=== PATIENT | male | born 1965 | race Caucasian/White ===

== ENCOUNTER → 2017-06-03 | Outpatient (CLI) | payer BC ==
--- NOTE | 2017-06-04 08:35 | XR ---
EXAMINATION TYPE: XR KUB DATE OF EXAM: 06/03/2017 4:56 PM CLINICAL HISTORY: Nephrolithiasis TECHNIQUE: Single supine KUB image of the abdomen is obtained. COMPARISON: 01/03/2016. FINDINGS: Scattered gas is seen in non-distended small bowel loops. Gas and fecal material is seen in non-distended colon. There is no visceromegaly, pneumoperitoneum, or abnormal calcification apprecia nohelia. No renal calculi are appreciated although the renal shadows are partially obscured by bowel. Surinder gical clips are noted within the left medial upper quadrant. The lung bases are clear and the osseous structures are intact. Mild bilateral femoral acetabular arthropathy is noted. IMPRESSION: 1. Nonobstructive bowel gas pattern. 2. No radiopaque renal calculi. Note that no evidence of nephrolithiasis was seen on the CT abdomen p ervin dated 01/13/2016.
== END | disposition home or self-care (01) ==
LOC: RADXRMAIN 15:44
PROVIDERS: ATTEND Urology
DX: N20.0 Calculus of kidney (principal)
CPT/HCPCS: 74018

== ENCOUNTER → 2017-06-17 | Outpatient (CLI) | payer BC ==
--- NOTE | 2017-06-17 16:32 | CT ---
EXAMINATION TYPE: CT urogram wo/w con DATE OF EXAM: 06/17/2017 COMPARISON: 01/03/2016 HISTORY: Gross hematuria x [address] DLP: 1530.30 mGycm, Automated Exposure Control for Dose Reduction was Utilized. CONTRAST: CT scan of the abdomen and pelvis is performed with oral and without and with IV Contrast, patient in jected with 100 mL of Omnipaque 300. 3-D reformats of the collecting systems, ureters and urinary angela dder were created at a separate workstation and submitted for interpretation. FINDINGS: Lack of oral contrast limits evaluation of the hollow viscera. LUNG BASES: Minimal left basilar subsegmental atelectasis. LIVER/GB: There is a fluid attenuated nonenhancing 1.1 cm left hepatic cyst. This is stable from the exam of 2016 retrospectively. There is only limited visualization of the liver given the technique. N o other gross hepatic abnormalities are seen. No radiopaque gallbladder calculi. PANCREAS: No significant abnormality is seen. No ductal dilatation. SPLEEN: The spleen is enlarged and longitudinal dimension measuring 14.7 cm. Craniocaudal dimension c annot be measured as the most cranial portion of the spleen is not included in the [id number]. ADRENALS: No significant abnormality is seen. No thickening or masses. KIDNEYS: On the unenhanced images there is a single punctate 2 mm left lower pole renal calculus that is nonobstructing. No evidence of hydronephrosis bilaterally. There is impression upon the superior pole of the left kidney by the spleen. No focal renal masses are present. No perinephric fat strandin g or perinephric fluid collection. The ureters are nondilated with no filling defects seen. There is mild undulation of the posterior wall of the urinary bladder secondary impression by the enlarged pro state gland BOWEL: Surgical clips are seen at the gastroesophageal junction from prior Annette fundoplication. The re is redemonstration of sigmoid colonic diverticulosis. Sutures are also seen within the rectum. No proximal obstruction. Air-fluid level is seen within the distal esophagus with minimal proximal esoph ageal dilation as noted on the prior exam PROSTATE/SEMINAL VESICLES: The prostate gland is enlarged and heterogenous containing central zone ca lcifications and measuring 5.0 cm in transverse dimension. LYMPH NODES: No greater than 1cm abdominal or pelvic lymph nodes are appreciated. OSSEOUS STRUCTURES: Mild multilevel degenerative changes of the visualized thoracolumbar spine. OTHER: Diastases recti is incidentally noted. Minimal atherosclerosis is seen of the abdominal aorta and its branches. Abdominal aorta is of normal course and caliber. IMPRESSION: 1. Single punctate nonobstructing 2 mm left lower pole renal calculus. 2. Lobulated contour of the posterior urinary bladder wall secondary to impression by the enlarged an d heterogenous prostate gland. No distinct filling defect is seen within the urinary bladder or urete rs. 3. Persistent mild proximal dilatation of the distal esophagus with air-fluid level noted which may r elate to gastroesophageal reflux or stasis. Again endoscopy or upper GI/esophagram could be performed if clinically indicated. 4. Incidentally noted spinal megaly.
== END | disposition home or self-care (01) ==
LOC: RADCTMAIN 15:26
PROVIDERS: ATTEND Urology
DX: N20.0 Calculus of kidney (principal); N40.0 Benign prostatic hyperplasia without lower urinary tract symptoms
CPT/HCPCS: 74178; 74400; Q9967

== ENCOUNTER → 2017-07-22 | Outpatient (CLI) | payer BC ==
--- NOTE | 2017-07-22 23:27 | MR ---
EXAMINATION TYPE: MR shoulder RT wo con DATE OF EXAM: 07/22/2017 COMPARISON: NONE HISTORY: Rt shoulder pain, S/P fall October 2016 TECHNIQUE: Multiplanar, multisequence imaging of the right shoulder is performed without contrast. FINDINGS: The biceps tendon is intact. Subscapularis tendon is intact. There is small shoulder joint effusion. There are small degenerative cysts at the greater tuberosity of the humerus. There is moderate spurri ng at the AC joint. There is only minimal impingement on the supraspinatus tendon. There is no retrac tion. There are are small areas of increased signal in the supraspinatus tendon. The glenoid jennifer ap pear intact. There is no evidence of a fracture. IMPRESSION: Small shoulder joint effusion consistent with synovitis. Small degenerative cysts in the greater tube rosity. Hypertrophic degenerative changes at the AC joint with minimal subacromial impingement. There is mild thickening and increased signal in the supraspinatus tendon consistent with partial tea r and tendinitis.
== END | disposition home or self-care (01) ==
LOC: RADMRIMAIN 21:32
PROVIDERS: ATTEND Orthopaedic Surgery
DX: M25.411 Effusion, right shoulder (principal); M89.311 Hypertrophy of bone, right shoulder; M85.611 Other cyst of bone, right shoulder; M25.811 Other specified joint disorders, right shoulder; M67.813 Other specified disorders of tendon, right shoulder

== ENCOUNTER → 2019-12-08 | Outpatient (CLI) | payer BC ==
--- NOTE | 2019-12-08 17:56 | MR ---
EXAMINATION TYPE: MR lumbar spine wo con DATE OF EXAM: 12/08/2019 COMPARISON: CT urogram June 17, 2017. HISTORY: Pelvic and perineal/perineum pain per order. Back and Bilateral buttocks pain with difficult y sitting per patient. TECHNIQUE: Multiplanar, multisequence imaging of the lumbar spine is performed without IV contrast. FINDINGS: Sagittal images of the lumbar spine show vertebral body heights to remain satisfactory. Per sistent slight grade 1 retrolisthesis L3 on L4, L4 on L5, and L5 on S1. Multilevel disc desiccation w ith moderate to advanced disc space narrowing and vacuum disc phenomenon L5-S1 level. The conus medu llaris is normal in position and signal ending at mid L1 level. Mild to moderate multilevel anterior spurring. Modic type II endplate change and anterior L1-L2 noted Axial images show T12-L1 level to appear within normal limits. Axial images at the L1-L2 level show and broad-based right paracentral disc protrusion with annular t ear effacing anterior thecal sac. Patent bilateral neural foramina. Axial images at L2-L3 are within normal limits. Axial images at L3-L4 level show mild broad disc bulge and spondylolisthesis. Spinal canal is preserv ed. There is mild bilateral anterior inferior neural foraminal narrowing. Axial images at the L4-L5 levels with spondylolisthesis and central disc protrusion effacing anterior thecal sac along with mild facet degenerative changes bilaterally. There is mild bilateral anterior inferior neural foraminal narrowing. Axial images at the L5-S1 level show right Modic type II endplate changes. There is spondylolisthesis with moderate facet degenerative changes bilaterally. There is central disc protrusion and annular t ear. Spinal canal is grossly preserved. There is mild to moderate right inferior neural foraminal chanda rowing encroaching along the inferior right L5 nerve sagittal image 14 and axial image 3 and there is more advanced left-sided neural foraminal narrowing sagittal image 3 effacing the left L5 nerve. Paraspinal muscle bulk is maintained. IMPRESSION: Multilevel spondylolisthesis and degenerative changes in the lumbar spine as detailed abo ve greatest at L5-S1 level.
== END | disposition home or self-care (01) ==
LOC: RADMRIMAIN 16:20
PROVIDERS: ATTEND Family Medicine
DX: M43.16 Spondylolisthesis, lumbar region (principal); M47.816 Spondylosis without myelopathy or radiculopathy, lumbar region; M47.817 Spondylosis without myelopathy or radiculopathy, lumbosacral region
CPT/HCPCS: 72148

== ENCOUNTER → 2022-02-18 | Outpatient (CLI) | payer BC ==
[2022-02-19 00:06] LABS: Basophils # (A) 0.04 X 10*3/uL (0.00-0.10); Basophils % (A) 0.7 %; Eosinophils # (A) 0.22 X 10*3/uL (0.04-0.35); Eosinophils % (A) 3.7 %; HCT 42.6 % (39.6-50.0); HGB 14.2 g/dL (13.0-17.0); Immature Grans, Automated 0.3 %; Lymphocytes # (A) 1.67 X 10*3/uL (0.90-5.00); MCHC 33.3 g/dL (32.0-37.0); MCV 90.1 fL (80.0-97.0); Mean Platelet Volume 11.2 fL (9.5-12.2); Monocytes # (A) 0.58 X 10*3/uL (0.20-1.00); Monocytes % (A) 9.7 %; NRBC Per 100 WBC 0 /100 WBCS (0.0-0.0); Neutrophils # (A) 3.43 X 10*3/uL (1.80-7.70); Neutrophils % (A) 57.6 %; Platelet Count 150 X 10*3/uL (140-440); RBC 4.73 X 10*6/uL (4.40-5.60); RDW 12.8 % (11.5-14.5); WBC 5.96 X 10*3/uL (4.50-10.00)
== END | disposition home or self-care (01) ==
LOC: LABPAT 14:40
PROVIDERS: ATTEND Surgery
DX: Z01.812 Encounter for preprocedural laboratory examination (principal); K40.90 Unilateral inguinal hernia, without obstruction or gangrene, not specified as recurrent; D64.9 Anemia, unspecified; F17.200 Nicotine dependence, unspecified, uncomplicated
CPT/HCPCS: 36415; 85025; 93005

== ENCOUNTER 2022-03-01 10:44 | Day surgery (SDC) | payer BC ==
--- NOTE | 2022-03-01 09:55 | P.GSHP ---
History of Present Illness H&P Date: 03/01/22 Chief Complaint: left inguinal hernia 56-year-old male seen in the office approximately one month ago. Patient has complaints of a left groin bulge. Present for the last several months. Mild soreness. History of previous laparoscopic repair umbilical hernia with 9 cm round mesh. No complaints on the right groin side. Past Medical History Past Medical History: Eye Disorder, Pneumonia, Skin Disorder Additional Past Medical History / Comment(s): GLAUCOMA LT EYE pneumonia 40 yrs ago, kidney stones,. rosacea History of Any Multi-Drug Resistant Organisms: None Reported Past Surgical History: Appendectomy Additional Past Surgical History / Comment(s): colonoscopy procedure at [facility] for achalasia. hemorrhoidectomy. cataract lt eye. lt corneal transplant. lithotripsy Past Anesthesia/Blood Transfusion Reactions: Postoperative Nausea & Vomiting (PONV) Smoking Status: Former smoker - Past Family History Father Family Medical History: Cancer Additional Family Medical History / Comment(s): prostate cancer, squamous cell ca Medications and Allergies Home Medications Medication Instructions Recorded Confirmed Type Desonide [Desowen] 60 gm TP BID 03/12/16 02/26/22 History Latanoprost Ophth [Xalatan 0.005%] 1 drops LEFT EYE DAILY 03/12/16 02/26/22 History metroNIDAZOLE 0.75% CREAM 1 applic TOPICAL BID 03/12/16 02/26/22 History [Metrocream] Doxycycline [Vibramycin] 50 mg PO DAILY 02/26/22 02/26/22 History Allergies Allergy/AdvReac Type Severity Reaction Status Date / Time Penicillins AdvReac Rash/Hives Verified 02/26/22 15:41 Surgical - Exam Physical exam: General: Well-developed, well-nourished HEENT: Normocephalic, sclerae nonicteric Abdomen: Nontender, nondistended, previous scars noted, reducible left inguinal hernia Extremities: No edema Neuro: Alert and oriented Assessment and Plan (1) Left inguinal hernia Narrative/Plan: 56-year-old male with reducible left inguinal hernia. We'll proceed with laparoscopic da Nicolas assisted repair left inguinal hernia with mesh, possible open, possible bilateral. The potential of abdominal adhesions because of his previous hernia repair discussed. This may require additional incisions or conversion. Risks of bleeding, infection, recurrence, bladder and bowel injury, numbness, nerve injury, conversion to an open procedure were discussed with the patient. The patient understands and wishes to proceed. Status: Acute Code(s): K40.90 - UNIL INGUINAL HERNIA, W/O OBST OR GANGR, NOT SPCF RECUR OMED Code(s): 352133343
[~2022-03-01 10:44] MED LIST: ACETAMINOPHEN TAB 500 MG TAB PO PRN; DEXAMETHASONE SOD PHOSPHATE 4 MG/ML 1 ML VIAL IV ONE; HEPARIN SODIUM,PORCINE/PF 5,000 UNIT/0.5 ML SYRINGE SQ PRN; HYDROmorphone 0.5 MG/0.5 ML SYRINGE IVP PRN; LACTATED RINGERS 1,000 ML IV SCH; LIDOCAINE 1% (10MG/ML) FOR IV START INTRADERMA PRN; ONDANSETRON 4 MG/2 ML VIAL IVP ONE
[2022-03-01 11:22] VITALS: RESP 16
[2022-03-01] MEDS ORDERED: MIDAZOLAM 2 MG/2 ML VIAL ONE (12:08)
[2022-03-01] MEDS ORDERED: SUCCINYLCHOLINE CHLORIDE 200 MG/10 ML VIAL IV ONE (12:08)
[2022-03-01] MEDS ORDERED: fentaNYL (PF) 50 MCG/ML 2 ML AMP ONE (12:08)
[2022-03-01] MEDS ORDERED: ROCURONIUM 10 MG/ML (5 ML VIAL) IV ONE (12:08)
[2022-03-01] MEDS ORDERED: LIDOCAINE 2% INJ 20 MG/ML (2 ML VIAL) ONE (12:08)
[2022-03-01] MEDS ORDERED: KETOROLAC 15 MG/ML 1 ML VIAL ONE (12:08)
[2022-03-01] MEDS ORDERED: PROPOFOL 10 MG/ML 20 ML VIAL IV ONE (12:08)
[2022-03-01] MEDS ORDERED: KETAMINE 10 MG/ML 20 ML VIAL ONE (12:08)
[2022-03-01] MEDS ORDERED: NEOSTIGMINE 1 MG/ML 10 ML VIAL ONE (12:08)
[2022-03-01] MEDS ORDERED: GLYCOPYRROLATE 0.2 MG/ML 2 ML VIAL ONE (12:08)
[2022-03-01] MEDS ORDERED: BUPIVACAINE (PF) 0.25% 30 ML VIAL SQ ONE ×2 (12:51→13:10)
[2022-03-01] MEDS ORDERED: LACTATED RINGERS 1,000 ML IV ONE (14:09)
[2022-03-01] MEDS ORDERED: TAMSULOSIN 0.4 MG CAP.ER.24H PO STA (14:21)
--- NOTE | 2022-03-01 14:25 | P.OP ---
Date of Procedure: 03/01/22 Procedure(s) Performed: PREOPERATIVE DIAGNOSIS: Left inguinal hernia POSTOPERATIVE DIAGNOSIS: Left inguinal hernia, intra-abdominal adhesions, left cord lipoma PROCEDURE: Laparoscopic da Nicolas assisted repair left inguinal hernia with mesh, excision left cord lipoma, laparoscopic lysis of adhesions SURGEON: Dr. Gannon ANESTHESIA: General OPERATIVE PROCEDURE DETAILS: Patient was placed in the operating table in the supine position. The patient was placed under general anesthesia. The abdomen was prepped and draped in usual sterile fashion. Entrance into the perineal cavity occurred through a 5 mm optical trocar in the left upper quadrant. No adhesions in that area were noted. Insufflation took place to 15 mm. The patient's periumbilical region was inspected and as expected the patient had dense adhesions to the previously placed mesh. A 8 mm trocar was placed on both the right upper and left upper quadrant under direct visualization. The robotic camera was inserted through the left side and using the LigaSure device and blunt dissection I was able to dissect away and lysed the adhesions between the omentum and the abdominal wall mesh. Once we had adequate space a small curvilinear supraumbilical incision was made. An 8 mm trocar was placed into the peritoneal cavity through the mesh. The robotic arms were then brought in and docked into place. The fenestrated bipolar was used in the left arm and the laparoscopic claude was utilized in the right arm. A 30 8 mm scope was used in the up position. The peritoneal cavity was inspected. The patient had an obvious moderate-sized left indirect inguinal hernia. No hernia was seen on the right-hand side. The peritoneum was incised in a horizontal fashion cephalad to the internal inguinal ring. Following that careful dissection of the preperitoneal space took place. This took place using both electrocautery, sharp dissection but primarily blunt dissection. Visualization of the pubic tubercle and Thony's ligament took place medially. Full dissection took place laterally as well. The hernia sac was fully dissected. Once we had adequate space the large Pro spinneret cleaner mesh was advanced into the preperitoneal space and flattened out appropriately to cover all potential hernia sites. The patient had a cord lipoma that was excised as well. A single absorbable 20V lock suture was used to suture the mesh medially. The peritoneal defect was then closed using a absorbable 2-0 VLok suture. The hernia sac was incorporated into the peritoneal closure to help prevent future recurrence. I did use a single Magnus-Calvin 0 Ethibond stitch to reapproximate the fascia at the level of the umbilical mesh. The pneumoperitoneum was then evacuated. The skin of all 4 sites was closed using a 4-0 Monocryl stitch. Skin glue was then applied. TYPE OF MESH USED: Large Pro spinneret cleaner LOCATION OF MESH: Preperitoneal FIXATION: 20V lock PREOPERATIVE DISCUSSION ON SMOKING CESSASTION: Yes PREOPERATIVE DISCUSSION ON MORBID OBESITY: Yes PREOPERATIVE DISCUSSION ON APPROPRIATE USE OF NARCOTIC USE: Yes PREOPERATIVE EDUCATION: Multi Modal, Smoking Cessation and Weight Loss with BMI over 35. DISPOSITION: Stable to recovery room
[2022-03-01] MEDS ORDERED: ACETAMINOPHEN TAB 325 MG TAB PO SCH (14:30)
[2022-03-01 14:37] VITALS: TEMP 97.1
[2022-03-01] MEDS ORDERED: IBUPROFEN 600 MG TAB PO SCH (17:30)
[2022-03-01 17:40] VITALS: BP 156/84; PULSE 68
== END 2022-03-01 18:00 | disposition home or self-care (01) ==
LOC: OR 10:44
PROVIDERS: ATTEND Surgery
DX: K40.90 Unilateral inguinal hernia, without obstruction or gangrene, not specified as recurrent (principal); D17.6 Benign lipomatous neoplasm of spermatic cord; Z87.891 Personal history of nicotine dependence; K66.0 Peritoneal adhesions (postprocedural) (postinfection); Z87.442 Personal history of urinary calculi; Z88.0 Allergy status to penicillin; Z90.49 Acquired absence of other specified parts of digestive tract; Z98.890 Other specified postprocedural states
CPT/HCPCS: 86900; 86901; 86850; 49650; J1100; J0690; J2405; J1170; J1644; 88302

== ENCOUNTER → 2024-09-10 | Outpatient (CLI) | payer BC ==
[2024-09-10 15:14] LABS: Basophils # (A) 0.04 X 10*3/uL (0.00-0.10); Basophils % (A) 0.9 %; Eosinophils # (A) 0.11 X 10*3/uL (0.04-0.35); Eosinophils % (A) 2.4 %; HCT 41.9 % (39.6-50.0); HGB 12.5 g/dL (13.0-17.0); Lymphocytes # (A) 1.24 X 10*3/uL (0.90-5.00); Lymphocytes % (A) 27.5 %; MCH 24.7 pg (27.0-32.0); MCHC 29.8 g/dL (32.0-37.0); MCV 82.6 FL (80.0-97.0); Mean Platelet Volume 11.6 FL (9.5-12.2); Monocytes # (A) 0.56 X 10*3/uL (0.20-1.00); Monocytes % (A) 12.4 %; NRBC Per 100 WBC 0 X 10*3/uL (0.00-0.01); Neutrophils # (A) 2.55 X 10*3/uL (1.80-7.70); Neutrophils % (A) 56.6 %; Platelet Count 161 X 10*3/uL (140-440); RBC 5.07 X 10*6/uL (4.40-5.60); RDW 15.9 % (11.5-14.5); WBC 4.51 X 10*3/uL (4.50-10.00)
[2024-09-10 15:41] LABS: % Iron Saturation 10.56 (15.00-50.00); ALT 25 U/L (10-49); AST 25 U/L (14-35); Albumin 4.3 g/dL (3.8-4.9); Albumin/Globulin Ratio 2.53 Ratio (1.60-3.17); Alkaline Phosphatase 63 U/L (41-126); BUN/Creat Ratio 15.78 Ratio (12.00-20.00); Blood Urea Nitrogen 14.2 mg/dL (9.0-27.0); Carbon Dioxide 24.4 mmol/L (21.6-31.8); Chloride 109 mmol/L (96-109); Chol/HDL Ratio 5.18 Ratio; Ferritin 11.8 ng/mL (22.0-322.0); Globulin 1.7 g/dL (1.6-3.3); Glucose 96 mg/dL (70-110); Iron 47 UG/DL (65-175); LDL Cholesterol,Calculated 161.8 mg/dL (0.0-131.0); Potassium 4.5 mmol/L (3.5-5.5); Prostate Specific Antigen 1.92 ng/mL (0.000-4.500); Sodium 144 mmol/L (135-145); Total Bilirubin 0.3 mg/dL (0.3-1.2); Total Iron Binding Capacity 445 UG/DL (228-460); VLDL Calculation 10.86 mg/dL (5.00-40.00)
== END | disposition home or self-care (01) ==
LOC: LABWHC1 08:57
PROVIDERS: ATTEND Family Medicine
DX: Z00.00 Encounter for general adult medical examination without abnormal findings (principal); Z12.5 Encounter for screening for malignant neoplasm of prostate; E83.110 Hereditary hemochromatosis
CPT/HCPCS: 36415; 80053; 80061; 82728; 83036; 83540; 83550; 84153; 84443; 85025

== ENCOUNTER 2024-11-05 07:12 | Day surgery (SDC) | payer BC ==
[2024-11-03 11:41] VITALS: BMI 27.1
[2024-11-05] MEDS: IV FLUID CONTINUATION 1,000 ML IV ONE ×2 (07:30→08:54)
[2024-11-05 07:39] VITALS: RESP 16; TEMP 97.4
[2024-11-05] MEDS: LACTATED RINGERS 1,000 ML IV SCH (07:41)
[2024-11-05] MEDS ORDERED: PROPOFOL 10 MG/ML 20 ML VIAL IV ONE (08:55)
--- NOTE | 2024-11-05 09:25 | P.PCN ---
Date of Procedure: 11/05/24 Procedure(s) Performed: Brief history: Patient is a pleasant 59-year-old white male scheduled for an elective upper endoscopy as well as colonoscopy as a part of evaluation of anemia and Hemoccult positive stool. Procedure performed: Esophagogastroduodenoscopy with biopsy Colonoscopy with snare polypectomy Preoperative diagnosis: Anemia Hemoccult positive stool Anesthesia: [facility] [place] Procedure: After informed consent was obtained from the patient was brought into the endoscopy unit and IV sedation was administered by anesthesia under continuous monitoring. Initially upper endoscopy was done. The Olympus GF 160 video endoscope was inserted inserted into the mouth and esophagus intubated without any difficulty and was gradually advanced into the stomach and duodenum and carefully examined. The bulb and second part of the duodenum appeared normal. The scope was then withdrawn into the stomach adequately insufflated with air and upon careful examination the antrum and body, cardia and fundus appeared normal. The scope was then withdrawn into the esophagus. Small hiatal hernia noted. The GE junction was located at 40 cm to the incisors. It appeared regular with superficial erosions consistent with LA grade B reflux esophagitis. Rest of the esophagus appeared normal. Patient tolerated the procedure well. At this time the patient continued to remain sedation. Initial digital rectal examination was normal. Olympus CF 160 video colonoscope was then inserted into the rectum and gradually advanced to the ascending colon. Without any difficulty. Despite multiple attempts with abdominal pressure and changing patient's position I was not able to advance the scope into the base of the cecum. However part of the cecum that was visualized and appeared normal. Careful examination was performed as the scope was gradually being withdrawn. The prep was excellent. The part of the cecum, ascending colon, appeared normal. The transverse colon there was a 5 mm polyp that was removed by cold snare polypectomy. Rest of the transverse colon, descending colon, sigmoid colon and rectum appeared normal. Scattered sigmoid diverticulosis. Retroflexion was performed in the rectum and no lesions were noted. Patient tolerated the procedure well. Impression: 1. Upper endoscopy revealed small hiatal hernia and LA grade B reflux esophagitis 2. Colonoscopy revealed 5 mm transverse colon polyp status post cold snare polypectomy and scattered sigmoid diverticulosis Recommendations: Findings of this examination were discussed with the patient as well as his family. He was advised to take [id number] Prilosec 20 mg daily and follow antireflux measures.. If the biopsy reveals adenoma, he can have repeat colonoscopy in 5 years.
[2024-11-05 09:34] VITALS: BP 137/83; PULSE 64
== END 2024-11-05 10:16 ==
LOC: ORWHC2ENDO 07:12
PROVIDERS: ATTEND Internal Medicine Gastroenterology
DX: K57.30 Diverticulosis of large intestine without perforation or abscess without bleeding (principal); D12.3 Benign neoplasm of transverse colon; K21.00 Gastro-esophageal reflux disease with esophagitis, without bleeding; K44.9 Diaphragmatic hernia without obstruction or gangrene; D64.9 Anemia, unspecified; E78.5 Hyperlipidemia, unspecified; G47.33 Obstructive sleep apnea (adult) (pediatric); Z79.2 Long term (current) use of antibiotics; Z79.899 Other long term (current) drug therapy; Z88.0 Allergy status to penicillin; Z91.048 Other nonmedicinal substance allergy status
CPT/HCPCS: 88305; 45385; 43235; J2704